=== PATIENT | female | born 1970 | race Caucasian/White ===

== ENCOUNTER 2016-08-30 10:45 | Inpatient (IN) ==
--- NOTE | 2016-08-29 21:12 | Discharge Summary ---
<Emelina Rivera - Last Filed: 08/29/16 21:02> Date of Encounter: 08/29/16 - Discharge Diagnosis (1) Arthritis of knee, left Priority: Primary Status: Acute (2) Obesity Priority: Secondary Status: Chronic Qualifiers: Obesity type: unspecified obesity type Obesity severity: morbid Qualified Code(s): E66.01 - Morbid (severe) obesity due to excess calories - Discharge Medications Home Medications: Aspirin Enteric Coated [Aspirin EC] 325 mg PO DAILY #21 tablet.dr 08/29/16 [Rx] OxyCODONE Immed Rel [Roxicodone 5 MG] 5 - 10 mg PO Q6HR PRN #40 tablet 08/29/16 [Rx] Allergies/Adverse Reactions: Allergies No Known Allergies Allergy (Verified 08/30/16 11:52) Primary care physician: Jana Tafoya CNP - Patient Status Disposition: Home, Self-Care Condition: Good - Discharge Instructions Follow Up With: Jana Tafoya CNP [Primary Care Provider] - - Hospital Course Hospital course: Ms. Petersen is a 46 year old female - Time Spent with Patient Total time spent providing and/or coordinating discharge services: <Chapito Weston Raymond - Last Filed: 08/31/16 06:45> Date of Encounter: 08/31/16 Time of Encounter: 06:44 - Discharge Diagnosis (1) Arthritis of knee, left Priority: Primary Status: Acute (2) Obesity Priority: Secondary Status: Chronic Qualifiers: Obesity type: unspecified obesity type Obesity severity: morbid Qualified Code(s): E66.01 - Morbid (severe) obesity due to excess calories Primary care physician: Jana Tafoya CNP - Patient Status Functional capacity at discharge: uses cane/walker Overall status at discharge: patient is progressing back to baseline - Hospital Course Hospital course: Ms. Petersen is a 46 year old female The patient had an uneventful postoperative course. They received antibiotics and physical therapy and were discharged in stable condition. There will follow -up in the office in 2 weeks. Aspirin DVT prophylaxis - Time Spent with Patient Total time spent providing and/or coordinating discharge services:
[2016-08-30] MEDS ORDERED: CeFAZolin Pre 2,000 MG/100 ML 2,000 MG/100 ML BAG IVPB ONE (11:18)
--- NOTE | 2016-08-30 11:59 | Anesthesia Evaluation PreOp ---
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 08/29/16 [Rx] OxyCODONE Immed Rel [Roxicodone 5 MG] 5 - 10 mg PO Q6HR PRN #40 tablet 08/29/16 [Rx] Allergies No Known Allergies Allergy (Verified 08/30/16 11:52) - Meds/Allergy Pre-op Review Medications Reviewed: Yes Allergies Reviewed: Yes Beta Blockers on Current Med List: No Anesthesia Results - Labs Laboratory Tests 08/23/16 08/23/16 08/23/16 11:20 11:20 11:20 Hgb 14.0 Hct 43.3 Plt Count 449 H PT 11.2 INR 1.0 APTT 29.3 Sodium 137 Potassium 4.2 Creatinine 0.70 Anesthesia Exam O2 Sat Height 1.6 m Height 1.6 m Height 1.6 m Height 1.6 m Weight 117.027 kg Weight 117.027 kg Weight 117.027 kg Weight 117.027 kg O2 Sat by Pulse Oximetry 98 O2 Sat by Pulse Oximetry 98 Vital Signs Temp Pulse Resp BP Pulse Ox 98.0 F 95 18 128/91 98 08/30/16 11:12 08/30/16 11:12 08/30/16 11:12 08/30/16 11:12 08/30/16 11:12 Height: 1.6 Weight: 117 NPO (# of Hours): >8 - HEENT Pupil (Motor): Pupils equal, EOMI Mallampati: II Teeth: Normal Oral Opening: Greater than 3 - SALES AUDIT CLERK LOC: Oriented SALES AUDIT CLERK Motor: Normal RUE, Normal LUE, Normal RLE, Normal LLE, Normal Face SALES AUDIT CLERK Sensory: Normal: RUE, LUE, RLE, LLE, Face - Cardiac Rhythm: Regular Murmur: None - Pulmonary Breath Sounds: bilateral Clear Respiratory Effort: Symmetrical Anesthesia Assess/Plan ASA Score: 2 Modified Hanover Scale for Level of Consciousness: Cooperative, oriented, and tranquil Anesthetic Plan: General, Regional Monitoring Plan: Standard Monitors Recovery Plan: PACU
--- NOTE | 2016-08-30 12:05 | History & Physical Report ---
Date of Encounter: 08/30/16 Time of Encounter: 12:05 24 Hour HP Update - Instructions Instructions: If the History and Physical is less than 30 days old and was completed prior to A.M. admission and or procedure and has NOT been updated on calendar day of procedure please complete this update prior to performing procedure. - Update Patient reports changes in Medical Condition: No Changes in assessment/condition: No Changes in Medication: No Preop tests/diagnostics Reviewed: Yes Surgery Remains Indicated: Yes Consent for Planned Operative Procedure(s) Verified: Yes - Pre-Operative Checklist Preoperative Checklist Indicated: No Prophylactic Antibiotic Ordered: Yes Is VTE Prophylaxis Indicated?: Yes
[2016-08-30] MEDS ORDERED: Ringers Solution, Lactated 1,000 ML IVC SCH ×2 (12:15→17:06)
[2016-08-30] MEDS ORDERED: *HR* Promethazine 25 MG/ML VIAL IVP PRN (12:21)
[2016-08-30] MEDS ORDERED: Lidocaine -MPF 4% 5 ML AMPUL ONE (12:26)
[2016-08-30] MEDS ORDERED: *HR* Succinylcholine 200 MG/10 ML VIAL IVP ONE (12:26)
[2016-08-30] MEDS ORDERED: Lidocaine -MPF 2% 2 ML VIAL ONE (12:26)
[2016-08-30] MEDS ORDERED: *HR* Propofol 200 MG/20 ML VIAL IVP ONE ×2 (12:26→14:36)
[2016-08-30] MEDS ORDERED: *HR* Midazolam HCl 2 MG/2 ML VIAL ONE (12:26)
[2016-08-30] MEDS ORDERED: Ondansetron 4 MG/2 ML VIAL ONE (12:26)
[2016-08-30] MEDS ORDERED: *HR* FentaNYL (PF) 100 MCG/2 ML VIAL ONE ×2 (12:26→14:38)
[2016-08-30] MEDS ORDERED: Dexamethasone 4 MG/ML VIAL ONE (12:26)
[2016-08-30] MEDS ORDERED: ROPIVACAINE HCL/PF 0.5% 30 ML VIAL ONE (13:20)
[2016-08-30] MEDS ORDERED: Bupivacaine/Clonidine Syringe 1 EACH SYRINGE ONE (13:20)
--- NOTE | 2016-08-30 14:03 | Anesthesia Procedures ---
Date of Encounter: 08/30/16 Time of Encounter: 13:45 Procedures: Anesthesia - Nerve Block Procedure Date: 08/30/16 Time: 13:45 Allergies/Adv Reactions: NKDA Pre-op Diagnosis: LEFT TKA Surgical Procedure: LEFT KNEE ARTHRITIS Checklist: Correct Patient Identifier, Correct procedure, History checked Correct side: Left Blood Thinner: No Monitor Applied: EKG, BP, Pulse Oximetry Supplemental Oxygen via Nasal Cannula (L/min): 2 Sedation: Versed (mg): 2 Sedation: Fentanyl (mcg): 100 Indication: Post Op Analgesia Pre-op Neuro Deficits: No Block Type: Femoral, Other (IPACK ) Catheter placed: No Sterile Technique: Yes Ultrasound used: Yes Anatomy identified: Yes Visual spread of Local: Yes Neuro Stimulation: Yes Nerve Stimulator Range: 0.2 - 0.4 mA Blood on Needle Aspiration: No Smooth Injection of Local: Yes Pain with Injection of Local: No Prep: Chlorhexadine Needle: 22 x 50 mm Stimuplex Local: 0.25% Bupivicaine w/Clonidine 20 mcg/cc (20ML IPACK ), Ropivacaine (ROP 0.5% 30ML WITH DECADRON 8MG ) Volume (cc): 50 Number of Attempts: 1 Complications: None/effective block Vitals: Vital Signs - Last 8 Hours Temp Pulse Resp BP Pulse Ox 08/30/16 13:52 79 117/67 99 08/30/16 13:30 86 117/67 99 08/30/16 11:20 98 F 95 18 128/91 98 08/30/16 11:12 98.0 F 95 18 128/91 98 Intake and Output 08/29/16 08/30/16 08/30/16 23:59 07:59 15:59 Other: Weight 117.027 kg Patient Weight 08/30/16 23:59 Weight 117.027 kg
--- NOTE | 2016-08-30 15:01 | Orthopedic Operative Note ---
Date of procedure: 08/30/16 Pre-op diagnosis: Left knee arthritis Post-op diagnosis: same Procedure: Procedure: Left Total knee replacement Estimated blood loss: 200 cc Hardware: Arthrex Femur: 6 Tibia: 5 PS insert: 12 Patella: 37 Exam Under anesthesia: External rotation deformity loss. Loss of full 10 degrees flexion 95 degrees Procedural Notes: Grade 4 arthritic changes medial compartment grade 3 arthritic changes patellofemoral joint Operative procedure: The patient was brought to the operating room and placed on the operating room table. After general anesthesia was administered the operative knee was examined. Findings were noted in the exam under anesthesia. The operative extremity was prepped and draped in sterile surgical fashion. The patient received IV antibiotics prior to skin incision. A standard midline incision was made centered over the patella. The incision was made through the skin and subcutaneous tissue. A medial parapatellar tendon approach was performed. Care was taken to preserve tissue along the medial aspect of the patella. And to protect the patella tendon. The deep MCL was released off the medial tibia. The infra patella fat pad was excised. Knee was brought into flexion. Patient noted to have grade 4 arthritic changes medial compartment grade 3 arthritic changes patellofemoral joint. The entry hole was made for the intramedullary femoral guide. The guide was seated in 6 degrees of valgus. Anterior cut was made followed by the distal cut. The ACL the PCL the medial and the lateral menisci were excised. The tibia was subluxed forward. The entry hole was made for the intramedullary tibial guide. Guide was seated to resect 2 mm off the more abnormal side. The knee was brought into flexion the distal femur was sized to a 6. The femoral guide was seated, the anterior cut was made followed by the posterior condylar cut, followed by the chamfer cuts. The finishing guide was seated the box cut was made and the lug holes were drilled. The tibia was sized to a 5, the tibial tray was seated and prepared with the large drill followed by the fin cutter. Trial reduction revealed full extension no varus valgus instability with the appropriate 12 PS Justine. The patella was everted and cut was made at the level of the insertion of the quadriceps and patella tendon. The patella was sized to a 37 the guide was seated and the lug holes are drilled. Trial reduction revealed excellent patella tracking. All trial components were removed all bony surfaces were irrigated. The tibia was cemented first followed by the femur. The 12 PS Justine was seated and the knee was brought into full extension. The patella was cemented and held in place with the patellar holding clamp. After the cement had hardened, the knee sat for 2 minutes with a Betadine saline solution. The knee was then irrigated out with 2 L of pulse irrigation. The extensor mechanism was closed with #2 FiberWire suture and #2 PDS suture. The subcutaneous tissue was then irrigated and closed deep with #1 PDS suture superficially with 0 PDS suture and skin was closed with skin lora. The patient was then placed in a sterile dressing and a postoperative brace extubated and transferred to recovery room in stable condition. Anesthesia: ANKIT Surgeon: Chapito Weston Condition: stable Disposition: PACU
[2016-08-30] MEDS: *HR* HYDROmorphone (PF) 1 MG/ML SYRINGE IVP PRN ×6 (15:51→23:49)
[2016-08-30 16:04] LABS: Hematocrit 37.2 % (35.3-44.9); Hemoglobin 12.1 g/dL (11.5-15.4)
--- NOTE | 2016-08-30 16:32 | Anesthesia Evaluation Post Op ---
Date of Encounter: 08/30/16 Time of Encounter: 16:32 - Vital Signs Vital Signs: Vital Signs/O2 Sat/Glucose, Most Recent Temp Pulse Resp BP Pulse Ox 98.2 F 79 16 113/75 100 08/30/16 16:02 08/30/16 16:21 08/30/16 16:21 08/30/16 16:21 08/30/16 16:21 - Lungs Lungs: Clear Ascult./Percussion - Airway Airway: Non-obstructed - Cardiovascular Regular Rate, Baseline Rhythm - Mental Status Mental Status: Alert & Oriented, Answers Appropriately - Pain Pain Scale: 5 Pain Scale used: Freed-Blandon (Faces) - Nausea Vomiting Nausea Vomiting: Not Present - Hydration Hydration: Ice chips, Has not voided Notes: 08/30/16 16:32 naac - Discharge PostOp Status: Transfer Patient to floor
[2016-08-30] MEDS ORDERED: *HR* OxyCODONE Immed Rel 5 MG TABLET PO PRN (17:06)
[2016-08-30] MEDS ORDERED: Temazepam 15 MG CAPSULE PO PRN (17:06)
[2016-08-30] MEDS ORDERED: Sennosides 8.6 MG TABLET PO PRN (17:06)
[2016-08-30] MEDS ORDERED: Acetaminophen 325 MG TABLET PO PRN (17:06)
[2016-08-30] MEDS ORDERED: Naloxone 0.4 MG/ML INJ IVP PRN (17:06)
[2016-08-30] MEDS ORDERED: Ondansetron 4 MG/2 ML VIAL IVP PRN (17:06)
[2016-08-30] MEDS ORDERED: MOM Conc 10 ML UD.LIQ PO PRN (17:06)
[2016-08-30] MEDS ORDERED: *HR* Enoxaparin 30 MG/0.3 ML SYRINGE SQ SCH (18:00)
[2016-08-30] MEDS: *HR* OxyCODONE Immed Rel 5 MG TABLET PO PRN ×2 (18:14→22:13)
[2016-08-30] MEDS: *HR* Enoxaparin 30 MG/0.3 ML SYRINGE SQ SCH (18:15)
[2016-08-30] MEDS: ceFAZolin 2,000 MG in D5% in Water 100 ML IVPB SCH (20:35)
[2016-08-31] MEDS: *HR* OxyCODONE Immed Rel 5 MG TABLET PO PRN ×5 (02:21→20:56)
[2016-08-31] MEDS: *HR* HYDROmorphone (PF) 1 MG/ML SYRINGE IVP PRN ×6 (04:21→23:56)
[2016-08-31] MEDS: ceFAZolin 2,000 MG in D5% in Water 100 ML IVPB SCH (04:21)
[2016-08-31] MEDS: *HR* Enoxaparin 30 MG/0.3 ML SYRINGE SQ SCH ×2 (05:29→17:17)
--- NOTE | 2016-08-31 06:46 | Orthopedics Progress Note ---
Date of Encounter: 08/31/16 Time of Encounter: 06:45 - Assessment and Plan (1) Arthritis of knee, left Current Visit: Yes Status: Acute (2) Obesity Current Visit: Yes Status: Chronic Qualifiers: Obesity type: unspecified obesity type Obesity severity: morbid Qualified Code(s): E66.01 - Morbid (severe) obesity due to excess calories Subjective Interval history: Patient was seen this morning doing well without complaints. Afebrile vital signs stable. Operative extremity: Neurovascularly intact Dressing clean dry and intact Calves nontender Assessment and plan: Continue with postoperative care hematocrit 37 discharged today Objective Vital signs: Vital Signs Temp Pulse Resp BP Pulse Ox 08/31/16 03:55 98.6 F 86 18 117/80 94 L 08/30/16 23:24 97.6 F 106 18 134/74 98 08/30/16 21:12 99 08/30/16 21:09 98.3 F 103 16 115/83 99 08/30/16 18:25 97.6 F 76 14 101/68 96 08/30/16 17:45 97.8 F 90 13 103/69 96 08/30/16 17:15 97.7 F 84 14 106/65 97 08/30/16 16:42 97.4 F L 80 16 107/77 98 08/30/16 16:32 97.4 F L 74 16 106/72 99 08/30/16 16:22 79 16 113/75 100 08/30/16 16:12 74 16 108/65 98 08/30/16 16:02 98.2 F 63 16 99/56 100 08/30/16 15:52 80 16 112/77 97 08/30/16 15:42 76 16 106/60 99 08/30/16 15:32 97.5 F L 88 12 92/60 100 08/30/16 14:12 77 119/68 98 08/30/16 13:52 79 117/67 99 08/30/16 13:30 86 117/67 99 08/30/16 11:20 98 F 95 18 128/91 98 08/30/16 11:12 98.0 F 95 18 128/91 98 Intake and Output 08/30/16 08/30/16 08/31/16 15:59 23:59 07:59 Intake Total 100 / 100 Output Total 200 / 200 850 / 850 450 / 450 Balance -200 / -200 -750 / -750 -450 / -450 Intake: IV Fluids 100 / 100 Ancef 2,000 MG In 100 / 100 Dextrose 5% 100 ML @ 200 mls/hr IVPB Q8H [facility] Rx#: [id number] Output: Urine 850 / 850 450 / 450 Estimated Blood Loss 200 / 200 Other: Weight 117.027 kg Blood Glucose* 229 - Labs CBC & BMP: 08/30/16 15:56 - VTE Documentation of Mechanical Device: Venous foot pump, device Consult Discharge Plan - Plan Referrals: Jana Tafoya, OCC THERAPIST [Primary Care Provider] -
[2016-08-31 07:12] LABS: Hematocrit 34.8 % (35.3-44.9); Hemoglobin 11.2 g/dL (11.5-15.4)
[2016-08-31 07:20] LABS: BUN/Creatinine Ratio 16 (6-26); Blood Urea Nitrogen 12 mg/dL (7-20); Calcium 8.7 mg/dL (8.6-10.8); Carbon Dioxide 24 mEq/L (19-29); Chloride 101 mEq/L (98-109); Glucose 169 mg/dL (70-99); Osmolality,Calculated 282 (280-300); Potassium 4.4 mEq/L (3.5-4.5); Sodium 134 mEq/L (136-145); eGFR For African Americans > 60 (> 60); eGFR For Non-African Americans > 60 (> 60)
[2016-09-01] MEDS: *HR* OxyCODONE Immed Rel 5 MG TABLET PO PRN ×2 (02:16→06:19)
[2016-09-01] MEDS: *HR* HYDROmorphone (PF) 1 MG/ML SYRINGE IVP PRN ×2 (03:29→05:38)
[2016-09-01] MEDS: *HR* Enoxaparin 30 MG/0.3 ML SYRINGE SQ SCH (05:39)
[2016-09-01 06:39] LABS: Hematocrit 31.2 % (35.3-44.9); Hemoglobin 10.1 g/dL (11.5-15.4)
[2016-09-01 06:50] LABS: BUN/Creatinine Ratio 19 (6-26); Blood Urea Nitrogen 13 mg/dL (7-20); Calcium 8.2 mg/dL (8.6-10.8); Carbon Dioxide 24 mEq/L (19-29); Chloride 100 mEq/L (98-109); Glucose 145 mg/dL (70-99); Osmolality,Calculated 279 (280-300); Potassium 3.9 mEq/L (3.5-4.5); Sodium 133 mEq/L (136-145); eGFR For African Americans > 60 (> 60); eGFR For Non-African Americans > 60 (> 60)
--- NOTE | 2016-09-01 08:34 | Orthopedics Progress Note ---
Date of Encounter: 09/01/16 Time of Encounter: 08:34 - Assessment and Plan (1) Arthritis of knee, left Current Visit: Yes Status: Acute (2) Obesity Current Visit: Yes Status: Chronic Qualifiers: Obesity type: unspecified obesity type Obesity severity: morbid Qualified Code(s): E66.01 - Morbid (severe) obesity due to excess calories Subjective Interval history: Patient was seen this morning doing well without complaints. Afebrile vital signs stable. Operative extremity: Neurovascularly intact Dressing clean dry and intact Calves nontender Assessment and plan: Continue with postoperative care discharged today Objective Vital signs: Vital Signs Temp Pulse Resp BP Pulse Ox 09/01/16 06:46 98.2 F 111 20 132/80 96 09/01/16 04:00 99.0 F 103 16 131/76 93 L 09/01/16 00:20 98.9 F 109 16 119/72 93 L 08/31/16 20:05 98.4 F 96 17 132/68 96 08/31/16 14:41 97.7 F 84 18 132/83 96 08/31/16 10:48 98.4 F 78 18 148/79 93 L Intake and Output 08/31/16 09/01/16 09/01/16 23:59 07:59 15:59 Intake Total 1025 / 1025 240 / 240 Balance 1025 / 1025 240 / 240 Intake: Oral 1025 / 1025 240 / 240 Other: Meal Dinner Percent of Meal Consumed 75% # Voids 1 - Labs CBC & BMP: 09/01/16 05:57 09/01/16 05:57 Labs: Abnormal lab results Hgb 10.1 g/dL (11.5-15.4) L 09/01/16 05:57 Hct 31.2 % (35.3-44.9) L 09/01/16 05:57 Sodium 133 mEq/L (136-145) L 09/01/16 05:57 Glucose 145 mg/dL (70-99) H 09/01/16 05:57 Calculated Osmolality 279 (280-300) L 09/01/16 05:57 Calcium 8.2 mg/dL (8.6-10.8) L 09/01/16 05:57 - VTE Documentation of Mechanical Device: Venous foot pump, device Consult Discharge Plan - Plan Additional Instructions: Discharge Instructions: Total Knee Replacement Please call [facility] ([phone]), your Primary Care Physician, or report to the Emergency Room if you have any of the following symptoms: Nausea, vomiting, fever greater that 101.5, swelling, chest pain, shortness of breath, increased pain/redness/drainage/odor for your incision site, numbness/ tingling, or any other concerning symptoms. ACTIVITY:Weight-bearing as tolerated. You may progress off support (cruthches or walker) as tolerated. MEDICATIONS: Upon discharge resume your home medications. Take all the medications as prescribed. Take a stool softener if taking narcotic pain medications. Stool softeners are only effective if you drink enough fluids. Drink 6-8 glass of water or fluids a day, unless this is not allowed for another health problem. Despite using stool softeners, if you haven't had a bowel movement in 3 days, please switch to a gentle laxative. Gentle laxatives are sold over the counter. You should have a bowel movement within 24 hours, if not call the office. You will be discharged from the hospital with a prescription for pain medication. You are encouraged to decrease the use of narcotic pain medication as tolerated. Should you require a refill, please call the office. [facility] prescribes narcotic pain medication for only 4-6 weeks after surgery. If you require pain medication beyond this time periord, you may be referred to your Primary Care Physician or to the Pain Clinic for further evaluation. Plan ahead for refills on pain medication as many narcotics either need to be picked up at the office or mailed. It is best to call 48-72 hours in advance of needing a prescription refill so you don't run out of medication. To help control the post-operative pain, you may take NSAIDs (Aleve,Advil, Motrin, ibuprofen, naprosyn) or Tylenol as prescribed on the bottle in addition to the pain medication. ANTICOAGULATION (blood thinners): Continue your Aspirin, Lovenox or Coumadin as prescribed to help prevent a blood clot in the leg or in the lungs. As long as your incision remains dry and you tolerate the NSAIDs (Aleve, Advil, Motrin, ibuprofen, naprosyn), it is OK to use the NSAIDS while you are taking your anticoagulation medication. Should your incision start to drain, stop the NSAID and contact our office. Common symptoms of blood clot in the legs include: localized pain, swelling, calf tenderness, redness or discoloration of the skin. Blood clot in the lung symptoms include: shortness of breath, rapid pulse, sweating, and chest pain that worsens with deep breathing, coughing up blood, lightheadedness, feelings of anxiety. If you experience any of these symptoms notify your physician immediately, go to the emergency room, or if having trouble breathing, call 911. WOUND CARE: Leave the dressing on for 7 days. You may change the dressing if it becomes saturated greater than 50%. You can shower but not a tub bath or submerge your incision in water. Wash your hands with antibacterial soap, rinse and dry prior to any wound care. If you have olra the visiting nurse or rehab facility can remove the stapes 10-14 days after surgery and place steri- strips across the wound. Leave the steri-strips in place until they fall off on their won. You may let water from the shower run on top of the steri-stirips. If you do not have a visiting nurse or rehab facility, you will need to return to the office at 10-14 days for the lora to be removed. FOLLOW-UP: Please follow up with your surgeon in the orthopedic clinic in 4 weeks from the day of surgery. If you have lora that need to be removed, you will need to come back to the office in 10-14 days from the day of surgery. Referrals: Chapito Weston MD [Partnered Physician] - 09/28/16 7:45 am Emelina Rivera PAC [Physician Placement Director] - 09/09/16 9:30 am Jana Tafoya CNP [Primary Care Provider] -
[2016-09-01 08:52] VITALS: BP 135/86
== END 2016-09-01 09:00 | disposition home or self-care (01) | DRG 470 ==
LOC: SAMDAY 10:45 → 3NENU 17:02
PROVIDERS: ADMIT Orthopaedic Surgery; ATTEND Orthopaedic Surgery